=== PATIENT | male | born 1970 | race Asian ===

== ENCOUNTER 2017-08-31 03:25 | Emergency (ER) | payer SELFPAY ==
[~2017-08-31] VITALS: Ht 167.6 cm; Wt 87.5 kg
[2017-08-31 03:35] VITALS: BP 126/87
--- NOTE | 2017-08-31 03:39 | NUR ---
PT TAKEN TO BED 7
--- NOTE | 2017-08-31 03:43 | NUR ---
PATIENT IS A 46 Y/O MALE WHO PRESENTS TO THE ED C/O DIZZINESS X1 WEEK. PT STATES, "I HAVE BEEN FEELING DIZZY WHEN I WALK." PT DENIES SOB, CP, PAIN, VOMITING/DIARRHEA, BUT REPORTS NAUSEA. PT AAOX4, RR EVEN/UNLABORED, AMBULATED WITH STEADY GAIT, PERRLA. PT REPOSITIONED FOR COMFORT, BED IN LOWEST POSITION. ER MD DR. GONZALEZ NOTIFIED. WILL CONTINUE TO MONITOR.
--- NOTE | 2017-08-31 03:48 | NUR ---
Dr. Bhakta evaluating patient at bedside.
[2017-08-31] MEDS ORDERED: MECLIZINE 25 MG TAB PO ONE (03:55)
[2017-08-31 04:35] VITALS: BP 131/82
--- NOTE | 2017-08-31 04:35 | NUR ---
Patient discharged with v/s stable. Written and verbal after care instructions given and explained. Patient alert, oriented and verbalized understanding of instructions. Ambulatory with steady gait. All questions addressed prior to discharge. ID band removed. Patient advised to follow up with PMD. Rx of MECLIZINE 25MG given. Patient educated on indication of medication including possible reaction and side effects. Opportunity to ask questions provided and answered.
== END 2017-08-31 04:35 | disposition home or self-care (01) ==
LOC: MED 03:25
DX: H81.13 Benign paroxysmal vertigo, bilateral (principal); R03.0 Elevated blood-pressure reading, without diagnosis of hypertension
CPT/HCPCS: 99283; J8597